=== PATIENT | male | born 1935 | race Caucasian/White ===

== ENCOUNTER 2020-05-12 21:47 | Emergency (ER) | payer MEDICARE, OTHER ==
[2020-05-12] MEDS ORDERED: ACETAMINOPHEN 325 MG TABLET PO ONE (22:27)
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
--- NOTE | 2020-05-12 23:21 | RADIOLOGY REPORT (SQ) ---
CLINICAL HISTORY: pain/ sts COMPARISON: None. TECHNIQUE: XR HAND 3 OR MORE VIEWS 05/12/2020 10:27 PM CDT FINDINGS: There is a mildly displaced fracture of the ulnar aspect of the base of the proximal second phalanx. There are multiple chronic appearing osseous bodies at the radial aspect of the second MCP joint. There is soft tissue swelling of the second digit. IMPRESSION: Base of proximal second phalanx fracture.
[2020-05-13 02:12] VITALS: BP 149/73
== END 2020-05-13 02:10 ==
LOC: ER 21:47
DX: S62.611A Displaced fracture of proximal phalanx of left index finger, initial encounter for closed fracture (principal); W51.XXXA Accidental striking against or bumped into by another person, initial encounter; Y92.099 Unspecified place in other non-institutional residence as the place of occurrence of the external cause
CPT/HCPCS: 99284; 73130; A9270

== ENCOUNTER 2020-06-11 13:15 | Emergency (ER) | payer MEDICARE, OTHER ==
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
--- NOTE | 2020-06-11 14:27 | RADIOLOGY REPORT (SQ) ---
EXAM DESCRIPTION: CT HEAD WITHOUT IMAGES COMPLETED DATE/TIME: 06/11/2020 1:11 pm REASON FOR STUDY: fall hit head COMPARISON: None. TECHNIQUE: Axial images acquired through the brain without intravenous contrast. Images reviewed wi th bone, brain and subdural windows. Additional sagittal and coronal reconstructions were generated. Images stored on PACS. All CT scanners at this facility use dose modulation, iterative reconstruction, and/or weight based d osing when appropriate to reduce radiation dose to as low as reasonably achievable (ALARA). [facility]: Dose Right [facility]: CareDose [facility]: Dose Right [facility]: Teradose 4D [facility]: Smart hiyalife RADIATION DOSE: CT Rad equipment meets quality standard of care and radiation dose reduction techniq ues were employed. CTDIvol: 53.2 mGy. DLP: 1044 mGy-cm. mGy. LIMITATIONS: None. FINDINGS: VENTRICLES: Normal size and contour. CEREBRUM: No masses. No hemorrhage. No midline shift. No evidence for acute infarction. Normal gra y-white matter differentiation. Mild patchy periventricular and deep white matter hypodense attenuat ion consistent with mild chronic small vessel ischemic change. CEREBELLUM: No masses. No hemorrhage. No alteration of density. No evidence for acute infarction. EXTRAAXIAL SPACES: No fluid collections. No masses. ORBITS AND GLOBE: No intra- or extraconal masses. Normal contour of globe without masses. CALVARIUM: No fracture. PARANASAL SINUSES: No fluid or mucosal thickening. SOFT TISSUES: No mass or hematoma. OTHER: No other significant finding. IMPRESSION: 1. No acute intracranial hemorrhage, mass, or evidence of acute territorial infarct. 2. Mild chronic small vessel ischemic change. EVIDENCE OF ACUTE STROKE: NO. COMMENT: Quality ID # 436: Final reports with documentation of one or more dose reduction techniques (e.g., Automated exposure control, adjustment of the mA and/or kV according to patient size, use of iterative reconstruction technique) TECHNICAL DOCUMENTATION: JOB ID: [id number] 2010 [employer]- All Rights Reserved Reading location - IP/workstation name: [email or web address]
--- NOTE | 2020-06-11 14:29 | RADIOLOGY REPORT (SQ) ---
EXAM DESCRIPTION: CT CERVICAL SPINE WITHOUT IMAGES COMPLETED DATE/TIME: 06/11/2020 1:11 pm REASON FOR STUDY: fall injury COMPARISON: None. TECHNIQUE: Axial images acquired through the cervical spine without intravenous contrast. Images re viewed with lung, soft tissue and bone windows. Reconstructed coronal and sagittal MPR images review ed. Images stored on PACS. All CT scanners at this facility use dose modulation, iterative reconstruction, and/or weight based d osing when appropriate to reduce radiation dose to as low as reasonably achievable (ALARA). [facility]: Dose Right [facility]: CareDose [facility]: Dose Right [facility]: Teradose 4D [facility]: Smart [employer] RADIATION DOSE: CT Rad equipment meets quality standard of care and radiation dose reduction techniq ues were employed. CTDIvol: 14.6 mGy. DLP: 328 mGy-cm. mGy. LIMITATIONS: None. FINDINGS: ALIGNMENT: Anatomic. MINERALIZATION: Normal. VERTEBRAL BODIES: No acute fracture or loss of vertebral body height. Multilevel spondylosis with sm all marginal osteophytes. No lytic or blastic bone lesions. DISCS: Degenerative disc disease with mild loss of intervertebral disc height at multiple levels. No significant spinal canal stenosis. FACETS, LATERAL MASSES, POSTERIOR ELEMENTS: No fractures. No dislocation. No acute findings. HARDWARE: None in the spine. VISUALIZED RIBS: No fractures. LUNG APICES AND SOFT TISSUES: No significant or acute findings. OTHER: No other significant finding. IMPRESSION: No acute fracture or dislocation of the cervical spine. Mild degenerative disc disease and spondylosis. TECHNICAL DOCUMENTATION: JOB ID: [id number] Quality ID # [id number]: Final reports with documentation of one or more dose reduction techniques (e.g., Au tomated exposure control, adjustment of the mA and/or kV according to patient size, use of iterative reconstruction technique) 2010 [employer]- All Rights Reserved Reading location - IP/workstation name: [email or web address]
[2020-06-11 15:58] VITALS: BP 150/83
== END 2020-06-11 16:15 | disposition home health service (06) ==
LOC: ER 13:15
DX: S00.03XA Contusion of scalp, initial encounter (principal); R51 Headache; W22.01XA Walked into wall, initial encounter; I25.10 Atherosclerotic heart disease of native coronary artery without angina pectoris
CPT/HCPCS: 70450; 72125; 99285

== ENCOUNTER 2020-09-02 11:53 | Observation (INO) | payer MEDICARE, OTHER ==
--- NOTE | 2020-09-02 12:52 | RADIOLOGY REPORT (SQ) ---
EXAM DESCRIPTION: CHEST SINGLE VIEW IMAGES COMPLETED DATE/TIME: 09/02/2020 12:40 pm REASON FOR STUDY: bed 1 short of breath COMPARISON: None. EXAM PARAMETERS: NUMBER OF VIEWS: One view. TECHNIQUE: Single frontal radiographic view of the chest acquired. RADIATION DOSE: NA LIMITATIONS: None. FINDINGS: LUNGS AND PLEURA: Hyperexpansion of the lungs. No infiltrate or effusion. No mass. MEDIASTINUM AND HILAR STRUCTURES: Hiatal hernia. HEART AND VASCULAR STRUCTURES: Heart normal in size. Normal vasculature. BONES: No acute findings. HARDWARE: Sternotomy wires. OTHER: No other significant finding. IMPRESSION: Chronic lung changes with no acute cardiopulmonary finding. Hiatal hernia. TECHNICAL DOCUMENTATION: JOB ID: [id number] 2010 [employer]- All Rights Reserved Reading location - IP/workstation name: [email or web address]
--- NOTE | 2020-09-02 13:14 | RADIOLOGY REPORT (SQ) ---
EXAM DESCRIPTION: CT HEAD WITHOUT IMAGES COMPLETED DATE/TIME: 09/02/2020 12:49 pm REASON FOR STUDY: weak COMPARISON: 06/11/2020 TECHNIQUE: Axial images acquired through the brain without intravenous contrast. Images reviewed wi th bone, brain and subdural windows. Additional sagittal and coronal reconstructions were generated. Images stored on PACS. All CT scanners at this facility use dose modulation, iterative reconstruction, and/or weight based d osing when appropriate to reduce radiation dose to as low as reasonably achievable (ALARA). [facility]: Dose Right [facility]: CareDose [facility]: Dose Right [facility]: Teradose 4D [facility]: 8th Story RADIATION DOSE: CT Rad equipment meets quality standard of care and radiation dose reduction techniq ues were employed. CTDIvol: 23.1 mGy. DLP: 476 mGy-cm.mGy. LIMITATIONS: None. FINDINGS: VENTRICLES: Prominent. CEREBRUM: No masses. No hemorrhage. No midline shift. Areas of low density in the white matter mos t likely due to chronic micro-vascular ischemic change. No evidence for acute infarction. CEREBELLUM: No masses. No hemorrhage. No alteration of density. No evidence for acute infarction. EXTRAAXIAL SPACES: Age-related involutional change. No fluid collections. No masses. ORBITS AND GLOBE: No intra- or extraconal masses. Normal contour of globe without masses. CALVARIUM: No fracture. PARANASAL SINUSES: No fluid or mucosal thickening. SOFT TISSUES: No mass or hematoma. OTHER: No other significant finding. IMPRESSION: CHRONIC CHANGES OF ATROPHY AND MICROVASCULAR ISCHEMIA. NO ACUTE PROCESS. EVIDENCE OF ACUTE STROKE: NO. TECHNICAL DOCUMENTATION: JOB ID: [id number] Quality ID # 436: Final reports with documentation of one or more dose reduction techniques (e.g., Au tomated exposure control, adjustment of the mA and/or kV according to patient size, use of iterative reconstruction technique) 2010 [employer]- All Rights Reserved Reading location - IP/workstation name: [email or web address]
[2020-09-02 13:39] LABS: ABSOLUTE BASOPHILS # (AUTO) 0.1 10^3/uL (0.0-0.2); ABSOLUTE EOSINOPHILS # (AUTO) 1.2 10^3/uL (0.0-0.6); ABSOLUTE LYMPHOCYTES (AUTO) 0.8 10^3/uL (0.5-4.7); ABSOLUTE MONOCYTES (AUTO) 0.6 10^3/uL (0.1-1.4); ABSOLUTE NEUT (AUTO) 6.4 10^3/uL (1.7-8.2); EOSINOPHILS % (AUTO) 13.6 % (0-6); LYMPHOCYTES % (AUTO) 8.9 % (13-45); MEAN CORPUSCULAR HEMOGLOBIN 21.2 pg (27.0-33.4); MEAN CORPUSCULAR VOLUME 68 fl (80-97); MONOCYTES % (AUTO) 6.4 % (3-13); PLATELET COUNT 388 10^3/uL (150-450); RED BLOOD COUNT 3.08 10^6/uL (4.35-5.55); RED CELL DISTRIBUTION WIDTH 17.3 % (11.5-14.0); SEGMENTED NEUTROPHILS % (AUTO) 70.1 % (42-78); TOTAL CELLS COUNTED % (AUTO) 100 %; WHITE BLOOD COUNT 9.2 10^3/uL (4.0-10.5)
[2020-09-02 13:40] LABS: HEMOGLOBIN 6.5 g/dL (13.5-17.0)
[2020-09-02 13:59] LABS: ALBUMIN 3.5 g/dL (3.5-5.0); ALKALINE PHOSPHATASE 69 U/L (38-126); ANION GAP 6 (5-19); ASPARTATE AMINO TRANSFERASE 18 U/L (17-59); BILIRUBIN,TOTAL 0.2 mg/dL (0.2-1.3); BLOOD UREA NITROGEN 22 mg/dL (7-20); CALCIUM 8.7 mg/dL (8.4-10.2); CARBON DIOXIDE 27 mmol/L (22-30); CHLORIDE 106 mmol/L (98-107); CREATINE KINASE 43 U/L (55-170); GLUCOSE 97 mg/dL (75-110); POTASSIUM 4.4 mmol/L (3.6-5.0); TOTAL PROTEIN 6.2 g/dL (6.3-8.2)
[2020-09-02 14:10] LABS: CREATINE KINASE MB 3.35 ng/mL (<4.55); NT PRO BNP 1140 pg/mL (<450)
[2020-09-02 14:11] LABS: TROPONIN I < 0.012 ng/mL
[2020-09-02] MEDS ORDERED: NORMAL SALINE 250 ML IV PRN ×2 (14:43)
[2020-09-02 15:28] LABS: ABSOLUTE RETICS # 0.034 10^6/uL (0.028-0.122); RETICULOCYTE COUNT (AUTO) 1.12 % (0.66-2.85)
[2020-09-02 15:32] LABS: APPEARANCE,URINE CLEAR; BILIRUBIN,URINE NEGATIVE (NEGATIVE); COLOR,URINE YELLOW; GLUCOSE, URINE NEGATIVE (NEGATIVE); KETONES,URINE NEGATIVE (NEGATIVE); PROTEIN,URINE NEGATIVE (NEGATIVE); URINE SPECIFIC GRAVITY 1.015; UROBILINOGEN,URINE NEGATIVE mg/dL (<2.0)
--- NOTE | 2020-09-02 15:32 | ER Document Report ---
ED Dizziness/Weakness - General Chief Complaint: Weakness Stated Complaint: WEAKNESS Time Seen by Provider: 09/02/20 12:21 Mode of Arrival: Medic Information source: Patient, Relative, Emergency Med Personnel, Outside Facility Records - HPI Notes: Patient was sent by an extended care facility to the emergency department secondary to weakness. They felt that he was more weak than normal. Son accompanies the patient in the room. Son states that he has noticed over the last several days that his father is a weaker and that his voice is quieter and that his speech is more unclear. No known recent fever sweats chills. No falls or trauma known. Patient has not had no vomiting or diarrhea. - Related Data Allergies/Adverse Reactions: No Known Allergies Allergy (Verified 09/02/20 12:05) Home Medications: List from transferring facility in paper chart. Past Medical History - General Information source: Patient, Relative, Outside Facility Records - Social History Smoking Status: Former Smoker Chew tobacco use (# tins/day): No Frequency of alcohol use: None Drug Abuse: None Family History: Reviewed & Not Pertinent - Past Medical History Cardiac Medical History: Reports: Hx Coronary Artery Disease Malignancy Medical History: Reports Hx Prostate Cancer Psychiatric Medical History: Reports: Hx Dementia Review of Systems - Review of Systems Constitutional: denies: Chills, Fever Cardiovascular: denies: Chest pain, Palpitations Respiratory: denies: Cough, Short of breath -: Yes All other systems reviewed and negative Physical Exam - Vital signs Vitals: Temp Resp BP Pulse Ox 98.0 F 10 L 124/58 L 95 09/02/20 11:59 09/02/20 11:59 09/02/20 11:59 09/02/20 11:59 Interpretation: Normal - General General appearance: Appears well, Alert - HEENT Head: Normocephalic, Atraumatic Eyes: Normal Pupils: PERRL - Respiratory Respiratory status: No respiratory distress Chest status: Nontender Breath sounds: Normal Chest palpation: Normal - Cardiovascular Rhythm: Regular Heart sounds: Normal auscultation Murmur: No - Abdominal Inspection: Normal Distension: No distension Bowel sounds: Normal Tenderness: Nontender Organomegaly: No organomegaly - Rectal Tenderness: No Stool: Heme negative Hemorrhoids: None - Back Back: Normal, Nontender - Extremities General upper extremity: Normal inspection, Nontender, Normal temperature General lower extremity: Normal inspection, Nontender, Normal temperature. No: Adamaris's sign - Neurological Cognition: Confused Orientation: Disoriented to place, Disoriented to time [place] Coma Scale Eye Opening: Spontaneous [place] Coma Scale Verbal: Confused [place] Coma Scale Motor: Obeys Commands Shirin Coma Scale Total: 14 Speech: Normal Motor strength normal: LUE, RUE, LLE, RLE Sensory: Normal - Psychological Associated symptoms: Normal affect, Normal mood - Skin Skin Temperature: Warm Skin Moisture: Dry Skin Color: Pale Course - Re-evaluation Re-evalutation: 09/02/20 15:30 Patient presents with weakness and some unclear speech per son. This been going on for several days. Patient shows no other focal deficits. Patient is significantly anemic however. He is also pale he is heme-negative rectally. Patient has no obvious sites of bleeding. Patient, per son, has never had bleeding before or required a transfusion. - Vital Signs Vital signs: Temp Pulse Resp BP Pulse Ox 98.0 F 10 L 124/58 L 95 09/02/20 12:05 09/02/20 11:59 09/02/20 11:59 09/02/20 12:04 - Laboratory Result Diagrams: 09/02/20 13:18 09/02/20 13:18 Laboratory results interpreted by me: 09/02/20 09/02/20 09/02/20 13:18 13:18 13:18 RBC 3.08 L Hgb 6.5 L Hct 21.0 L MCV 68 L MCH 21.2 L MCHC 31.0 L RDW 17.3 H Lymph % (Auto) 8.9 L Eos % (Auto) 13.6 H Absolute Eos (auto) 1.2 H BUN 22 H Creatine Kinase 43 L NT-Pro-B Natriuret Pep 1140 H Total Protein 6.2 L Crossmatch 09/02/20 14:59 RBC Hgb Hct MCV MCH MCHC RDW Lymph % (Auto) Eos % (Auto) Absolute Eos (auto) BUN Creatine Kinase NT-Pro-B Natriuret Pep Total Protein Crossmatch See Detail - Diagnostic Test Radiology reviewed: Image reviewed, Reports reviewed - EKG Interpretation by Me EKG shows normal: Sinus rhythm Rate: Normal - 78 Rhythm: NSR Murdock/QRS: IVCD Discharge - Discharge Clinical Impression: Weakness Anemia Qualifiers: Anemia type: iron deficiency Iron deficiency anemia type: chronic blood loss Qualified Code(s): 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
[2020-09-02 16:19] LABS: FERRITIN 6.54 ng/mL (17.9-464.0)
[2020-09-02 16:55] LABS: IRON(TIBC) < 10.1 ug/dL (49-181)
--- NOTE | 2020-09-02 17:28 | PDOC H&P ---
History of Present Illness Admission Date/PCP: 09/02/20 15:52 History of Present Illness: IRENA WEAVER is a 85 year old male Past medical history of dementia, CAD, prostate cancer, who is a [facility], brought to ED by family because patient was noted to be weaker than his normal self. Unfortunately patient has profound dementia does not provide much history, source of history is my conversation with ED physician and chart reviewed, no family present at the patient from the time of my encounter. As per family patient has not had any fever, chills, trauma, diarrhea, vomiting, or any apparent source of bleeding. In ED patient was noted to be severely anemic, stool guaiac was negative and hospitalist consulted for admission. On my encounter patient is comfortably stable, pleasantly confused, alert and oriented to self, knows he is in the hospital but will be sent that he is in the hospital is that he has lost his identity, patient denies any fever, chills, [place] sea, vomiting, diarrhea, constipation or any urinary symptoms. Denies any nosebleeds, hematemesis, hemoptysis, melena or hematuria. Past Medical History Cardiac Medical History: Reports: Coronary Artery Disease Psychiatric Medical History: Reports: Dementia Social History Smoking Status: Former Smoker Electronic Cigarette use?: No Family History Family History: Reviewed & Not Pertinent Parental Family History Reviewed: Yes Children Family History Reviewed: Yes Sibling(s) Family History Reviewed.: Yes Medication/Allergy Home Medications: Aspirin [Ecotrin 81 mg EC Tablet] 81 mg PO DAILY 09/02/20 Docusate Sodium [Colace 100 mg Capsule] 100 mg PO Q12 09/02/20 Memantine HCl [Namenda 10 mg Tablet] 10 mg PO Q12 09/02/20 Cholecalciferol (Vitamin D3) [Vitamin D3] 5,000 unit PO DAILY 56 Days #56 tab.rapdis 09/03/20 Cyanocobalamin (Vitamin B-12) [Vitamin B-12 Inj 1000 Mcg/1 ml Vial] 1,000 mcg IM .WEEKLY #8 vial 09/03/20 Cyanocobalamin (Vitamin B-12) [Vitamin B-12 Inj 1000 Mcg/1 ml Vial] 1,000 mcg IM DAILY 7 Days #7 vial 09/03/20 Ferrous Sulfate 325 mg PO DAILY 30 Days #30 tablet. 09/03/20 Multivit-Min/FA/Lycopen/Lutein [Adults 50 Plus Multivitamin] 1 each PO DAILY 30 Days #30 tablet 09/03/20 Allergies/Adverse Reactions: No Known Allergies Allergy (Verified 09/02/20 12:05) Review of Systems Review of Systems: as per hpi not very reliable as patient has profound dementia. Physical Exam Vital Signs: Temp Pulse Resp BP Pulse Ox 97.9 F 20 155/78 H 96 09/02/20 16:00 09/02/20 16:00 09/02/20 16:00 09/02/20 16:00 Intake & Output 09/01/20 09/02/20 09/03/20 06:59 06:59 06:59 Weight 73 kg General appearance: PRESENT: no acute distress, well-developed, well-nourished Head exam: PRESENT: atraumatic, normocephalic Neck exam: ABSENT: carotid bruit, JVD, lymphadenopathy, thyromegaly Respiratory exam: PRESENT: clear to auscultation denae. ABSENT: rales, rhonchi, wheezes GI/Abdominal exam: PRESENT: normal bowel sounds, soft. ABSENT: distended, guarding, mass, organolmegaly, rebound, tenderness Neurological exam: PRESENT: alert, awake, oriented to person, oriented to place, CN II-XII grossly intact. ABSENT: motor sensory deficit Skin exam: PRESENT: dry, intact, warm. ABSENT: cyanosis, rash Results Laboratory Results: 09/02/20 13:18 09/02/20 13:18 09/02/20 09/02/20 09/02/20 13:18 13:18 13:18 WBC 9.2 RBC 3.08 L Hgb 6.5 L Hct 21.0 L MCV 68 L MCH 21.2 L MCHC 31.0 L RDW 17.3 H Plt Count 388 Seg Neutrophils % 70.1 Retic Count (auto) 1.12 Sodium 139.0 Potassium 4.4 Chloride 106 Carbon Dioxide 27 Anion Gap 6 BUN 22 H Creatinine 0.93 Est GFR ( Amer) > 60 Glucose 97 Lactic Acid Calcium 8.7 Iron TIBC Ferritin Total Bilirubin 0.2 AST 18 Alkaline Phosphatase 69 Total Protein 6.2 L Albumin 3.5 Vitamin B12 Folate Urine Color Urine Appearance Urine pH Ur Specific [place] Urine Protein Urine Glucose (UA) Urine Ketones Urine Blood Urine RBC (Auto) Blood Type Antibody Screen 09/02/20 09/02/20 09/02/20 13:18 13:18 13:25 WBC RBC Hgb Hct MCV MCH MCHC RDW Plt Count Seg Neutrophils % Retic Count (auto) Sodium Potassium Chloride Carbon Dioxide Anion Gap BUN Creatinine Est GFR ( Amer) Glucose Lactic Acid 0.8 Calcium Iron < 10.1 L TIBC 411 Ferritin 6.54 L Total Bilirubin AST Alkaline Phosphatase Total Protein Albumin Vitamin B12 224.0 L Folate 7.40 Urine Color YELLOW Urine Appearance CLEAR Urine pH 6.0 Ur Specific [place] 1.015 Urine Protein NEGATIVE Urine Glucose (UA) NEGATIVE Urine Ketones NEGATIVE Urine Blood NEGATIVE Urine RBC (Auto) 0 Blood Type Antibody Screen 09/02/20 14:59 WBC RBC Hgb Hct MCV MCH MCHC RDW Plt Count Seg Neutrophils % Retic Count (auto) Sodium Potassium Chloride Carbon Dioxide Anion Gap BUN Creatinine Est GFR ( Amer) Glucose Lactic Acid Calcium Iron TIBC Ferritin Total Bilirubin AST Alkaline Phosphatase Total Protein Albumin Vitamin B12 Folate Urine Color Urine Appearance Urine pH Ur Specific [place] Urine Protein Urine Glucose (UA) Urine Ketones Urine Blood Urine RBC (Auto) Blood Type O POSITIVE Antibody Screen NEGATIVE 09/02/20 09/02/20 13:18 13:18 Creatine Kinase 43 L CK-MB (CK-2) 3.35 Troponin I < 0.012 NT-Pro-B Natriuret Pep 1140 H Impressions: Chest X-Ray 09/02/20 12:10 IMPRESSION: Chronic lung changes with no acute cardiopulmonary finding. Hiatal hernia. Head CT 09/02/20 12:30 IMPRESSION: CHRONIC CHANGES OF ATROPHY AND MICROVASCULAR ISCHEMIA. NO ACUTE PROCESS. EVIDENCE OF ACUTE STROKE: NO. Assessment and Plan - Diagnosis (1) Iron deficiency anemia Qualifiers: Iron deficiency anemia type: inadequate dietary iron intake Qualified Code(s): D50.8 - Other iron deficiency anemias Is this a current diagnosis for this admission?: Yes Plan: Severe iron and B12 deficiency. Stool guaiac negative. Most likely due to low p.o. intake. We will start on iron transfusion, IM vitamin B12 and p.o. folic acid. Scheduled to receive 2 PRBC. Monitor H&H, supportive transfusions. (2) Dementia Is this a current diagnosis for this admission?: Yes Plan: History of dementia. [facility]. Not sure if B12 deficiency has contributed to his dementia. We will replace B12. We will also check for TSH and T4. Resume home meds. Continue supportive measures. (3) Vitamin B12 deficiency Is this a current diagnosis for this admission?: Yes Plan: As per problem #1. (4) Vitamin D deficiency Is this a current diagnosis for this admission?: Yes - Time Time Spent with patient: 25-34 minutes Medications reviewed and adjusted accordingly: Yes Anticipated Discharge Disposition: [facility] Anticipated Discharge Timeframe: within 72 hours
[2020-09-02] MEDS ORDERED: FERRIC CARBOXYMALTOSE INJ 750 MG/15 ML VIAL IV ONE (17:29)
[2020-09-02] MEDS ORDERED: FOLIC ACID INJ 5 MG/1 ML 10 ML VIAL IV SCH (17:30)
[2020-09-02] MEDS ORDERED: ONDANSETRON HCL INJ/PF 4 MG/2 ML SDV IV PRN (17:31)
[2020-09-02] MEDS ORDERED: ACETAMINOPHEN 325 MG TABLET PO PRN (17:31)
[2020-09-02] MEDS ORDERED: NORMAL SALINE 1000 ML 1,000 ML IV PRN (17:31)
[2020-09-02] MEDS ORDERED: TEMAZEPAM 7.5 MG CAPSULE PO PRN (17:31)
[2020-09-02] MEDS ORDERED: PROMETHAZINE HCL INJ 25 MG/1 ML VIAL IV PRN (17:31)
[2020-09-02] MEDS ORDERED: IPRATROPIUM/ALBUTEROL 0.5-2.5 MG/3 ML AMPUL NEB PRN (17:31)
[2020-09-02] MEDS ORDERED: MAG HYDROX/AL HYDROX/SIMETH SUSP 30 ML UDCUP PO PRN (17:31)
--- NOTE | 2020-09-02 17:51 | EKG REPORT ---
SEVERITY:- ABNORMAL ECG - SINUS RHYTHM : Confirmed by: Jose Riggins 02-Sep-2020 17:50:12
[2020-09-02] MEDS ORDERED: FOLIC ACID 1 MG in NORMAL SALINE 250 ML IV ONE (19:30)
[2020-09-02 19:42] LABS: FREE T4 (FREE THYROXINE) 0.84 ng/dL (0.78-2.19)
[2020-09-02 19:56] LABS: THYROID STIMULATING HORMONE 3.67 uIU/mL (0.47-4.68)
[2020-09-02] MEDS ORDERED: FERRIC CARBOXYMALTOSE 750 MG in NORMAL SALINE 250 ML IV ONE (20:00)
[2020-09-02] MEDS ORDERED: CYANOCOBALAMIN (VITAMIN B-12) INJ 1000 MCG/1 ML VIAL IM SCH (22:00)
[2020-09-03] MEDS: HEPARIN SOD (PORCINE) 5,000 UNIT/ML 1 ML VIAL SUBCUT SCH ×3 (01:58→13:41)
[2020-09-03] MEDS: FAMOTIDINE 20 MG TABLET PO SCH ×2 (01:59→09:28)
[2020-09-03] MEDS ORDERED: FERRIC CARBOXYMALTOSE 750 MG in NORMAL SALINE 250 ML IV ONE (03:00)
[2020-09-03] MEDS ORDERED: FOLIC ACID 1 MG in NORMAL SALINE 250 ML IV ONE (03:00)
[2020-09-03 07:37] LABS: ABSOLUTE BASOPHILS # (AUTO) 0.1 10^3/uL (0.0-0.2); ABSOLUTE EOSINOPHILS # (AUTO) 1.4 10^3/uL (0.0-0.6); ABSOLUTE LYMPHOCYTES (AUTO) 0.9 10^3/uL (0.5-4.7); ABSOLUTE MONOCYTES (AUTO) 0.6 10^3/uL (0.1-1.4); ABSOLUTE NEUT (AUTO) 5.8 10^3/uL (1.7-8.2); BASOPHILS % (AUTO) 0.9 % (0-2); EOSINOPHILS % (AUTO) 16.2 % (0-6); HEMATOCRIT 25.3 % (37.9-51.0); HEMOGLOBIN 8.1 g/dL (13.5-17.0); LYMPHOCYTES % (AUTO) 10.3 % (13-45); MEAN CORPUSCULAR HEMOGLOBIN 23.3 pg (27.0-33.4); MEAN CORPUSCULAR HGB CONC 32.1 g/dL (32.0-36.0); MONOCYTES % (AUTO) 6.6 % (3-13); PLATELET COUNT 328 10^3/uL (150-450); RED BLOOD COUNT 3.48 10^6/uL (4.35-5.55); RED CELL DISTRIBUTION WIDTH 20.8 % (11.5-14.0); TOTAL CELLS COUNTED % (AUTO) 100 %; WHITE BLOOD COUNT 8.7 10^3/uL (4.0-10.5)
[2020-09-03 08:00] LABS: ALBUMIN 3.2 g/dL (3.5-5.0); ALKALINE PHOSPHATASE 55 U/L (38-126); ANION GAP 7 (5-19); ASPARTATE AMINO TRANSFERASE 19 U/L (17-59); BILIRUBIN,TOTAL 0.8 mg/dL (0.2-1.3); BLOOD UREA NITROGEN 18 mg/dL (7-20); CALCIUM 8.7 mg/dL (8.4-10.2); CARBON DIOXIDE 27 mmol/L (22-30); CHLORIDE 107 mmol/L (98-107); GLUCOSE 75 mg/dL (75-110); POTASSIUM 4.3 mmol/L (3.6-5.0); TOTAL PROTEIN 5.9 g/dL (6.3-8.2)
[2020-09-03] MEDS ORDERED: INFLUENZA QUAD (6MOS+) 2020-21 VAC 0.5 ML SYR IM ONE (08:00)
[2020-09-03 08:08] LABS: MEAN CORPUSCULAR VOLUME 73 fl (80-97)
[2020-09-03] MEDS ORDERED: DOCUSATE SODIUM 100 MG CAPSULE PO SCH (10:00)
[2020-09-03] MEDS ORDERED: FOLIC ACID 1 MG TABLET PO SCH (10:00)
[2020-09-03] MEDS ORDERED: PROMETHAZINE HCL INJ 25 MG/1 ML VIAL IV PRN (15:00)
[2020-09-03] MEDS ORDERED: ONDANSETRON HCL INJ/PF 4 MG/2 ML SDV IV PRN (15:00)
[2020-09-03 15:54] VITALS: BP 159/51
--- NOTE | 2020-09-03 16:25 | PDOC DISCHARGE SUMMARY ---
Impression - Admit/DC Date/PCP Admission Date/Primary Care Provider: 09/02/20 15:52 Discharge Date: 09/03/20 - Discharge Diagnosis (1) Iron deficiency anemia Is this a current diagnosis for this admission?: Yes (2) Dementia Is this a current diagnosis for this admission?: Yes (3) Vitamin B12 deficiency Is this a current diagnosis for this admission?: Yes (4) Vitamin D deficiency Is this a current diagnosis for this admission?: Yes - Additional Information Resuscitation Status: Full Code Prescriptions: Multivit-Min/FA/Lycopen/Lutein [Adults 50 Plus Multivitamin] 1 each PO DAILY 30 Days #30 tablet Cyanocobalamin (Vitamin B-12) [B-12] 3,000 mcg SL DAILY 30 Days #30 tab.subl Ferrous Sulfate 325 mg PO DAILY 30 Days #30 tablet. Cholecalciferol (Vitamin D3) [Vitamin D3] 5,000 unit PO DAILY 56 Days #56 tab.rapdis Home Medications: Aspirin [Ecotrin 81 mg EC Tablet] 81 mg PO DAILY 09/02/20 Docusate Sodium [Colace 100 mg Capsule] 100 mg PO Q12 09/02/20 Memantine HCl [Namenda 10 mg Tablet] 10 mg PO Q12 09/02/20 Cholecalciferol (Vitamin D3) [Vitamin D3] 5,000 unit PO DAILY 56 Days #56 tab.rapdis 09/03/20 Cyanocobalamin (Vitamin B-12) [B-12] 3,000 mcg SL DAILY 30 Days #30 tab.subl 09/03/20 Ferrous Sulfate 325 mg PO DAILY 30 Days #30 tablet. 09/03/20 Multivit-Min/FA/Lycopen/Lutein [Adults 50 Plus Multivitamin] 1 each PO DAILY 30 Days #30 tablet 09/03/20 History of Present Illiness History of Present Illness: IRENA WEAVER is a 85 year old male Past medical history of dementia, CAD, prostate cancer, who is a resident of group home, brought to ED by family because patient was noted to be weaker than his normal self. Unfortunately patient has profound dementia does not provide much history, source of history is my conversation with ED physician and chart reviewed, no family present at the patient from the time of my encounter. As per family patient has not had any fever, chills, trauma, diarrhea, vomiting, or any apparent source of bleeding. In ED patient was noted to be severely anemic, stool guaiac was negative and hospitalist consulted for admission. On my encounter patient is comfortably stable, pleasantly confused, alert and oriented to self, knows he is in the hospital but will be sent that he is in the hospital is that he has lost his identity, patient denies any fever, chills, nausea, vomiting, diarrhea, constipation or any urinary symptoms. Denies any nosebleeds, hematemesis, hemoptysis, melena or hematuria. Hospital Course Hospital Course: (1) Iron deficiency anemia Severe iron and B12 deficiency. Stool guaiac negative as per ED physician's note. Most likely due to low p.o. intake. As per my conversation with patient's son and himself he has a healthy appetite and he is fed properly at the assisted living that he is living. Patient received 2 days of IM B12. Dose of IV folic acid. 1 dose of IV Injectafer. Status post 2 PRBC transfusion. H&H is stable. Patient and son reports significant improvement of his symptoms. As per son patient is back at his baseline. It is highly recommended that patient continue with his supplemental ferrous sulfate, folic acid and sublingual B12. Patient will highly benefit from SC/IM B12 injection but unfortunately I was informed that the assisted living that he is staying we will not be able to give any IM/SC medications. Patient needs to follow-up with his PCP for reevaluation of his iron deficiency, B12 and Vitamin D levesl if levels are still low patient needs to be worked up for underlying malabsorptive abnormalities. Patient and family intervention proper nutrition. (2) Dementia History of dementia. Resident of group home. Not sure if B12 deficiency has contributed to his dementia. TSH, T4 WNL. (3) Vitamin B12 deficiency As per problem #1. (4) Vitamin D deficiency Severe vitamin D deficiency. Likely due to low p.o. intake. Received 50,000 units x 1 in the hospital. Patient is to continue vitamin B12 5000 unit for another 8 weeks and be reevaluated by PCP. Physical Exam Vital Signs: Temp Pulse Resp BP Pulse Ox 98.2 F 61 19 159/51 H 95 09/03/20 15:25 09/03/20 15:25 09/03/20 15:25 09/03/20 15:25 11/11/20 15:25 Intake & Output 09/02/20 09/03/20 09/04/20 06:59 06:59 06:59 Intake Total 1115.2 Balance 1115.2 Weight 67.3 kg 67.3 kg General appearance: PRESENT: no acute distress, well-developed, well-nourished Head exam: PRESENT: atraumatic, normocephalic Respiratory exam: PRESENT: clear to auscultation denae. ABSENT: rales, rhonchi, wheezes Pulses: PRESENT: normal dorsalis pedis pul GI/Abdominal exam: PRESENT: normal bowel sounds, soft. ABSENT: distended, guarding, mass, organolmegaly, rebound, tenderness Extremities exam: PRESENT: full ROM. ABSENT: calf tenderness, clubbing, pedal edema Neurological exam: PRESENT: alert, awake, oriented to person, oriented to place, oriented to time, oriented to situation, CN II-XII grossly intact. ABSENT: motor sensory deficit Results Laboratory Results: WBC 8.7 10^3/uL (4.0-10.5) 09/03/20 06:38 RBC 3.48 10^6/uL (4.35-5.55) L 09/03/20 06:38 Hgb 8.1 g/dL (13.5-17.0) L 09/03/20 06:38 Hct 25.3 % (37.9-51.0) L 09/03/20 06:38 MCV 73 fl (80-97) L D 09/03/20 06:38 MCH 23.3 pg (27.0-33.4) L 09/03/20 06:38 MCHC 32.1 g/dL (32.0-36.0) 09/03/20 06:38 RDW 20.8 % (11.5-14.0) H 09/03/20 06:38 Plt Count 328 10^3/uL (150-450) 09/03/20 06:38 Lymph % (Auto) 10.3 % (13-45) L 09/03/20 06:38 [place] % (Auto) 6.6 % (3-13) 09/03/20 06:38 Eos % (Auto) 16.2 % (0-6) H 09/03/20 06:38 Baso % (Auto) 0.9 % (0-2) 09/03/20 06:38 Reticulocyte # 0.034 10^6/uL (0.028-0.122) 09/02/20 13:18 Absolute Neuts (auto) 5.8 10^3/uL (1.7-8.2) 09/03/20 06:38 Absolute Lymphs (auto) 0.9 10^3/uL (0.5-4.7) 09/03/20 06:38 Absolute Monos (auto) 0.6 10^3/uL (0.1-1.4) 09/03/20 06:38 Absolute Eos (auto) 1.4 10^3/uL (0.0-0.6) H 09/03/20 06:38 Absolute Basos (auto) 0.1 10^3/uL (0.0-0.2) 09/03/20 06:38 Seg Neutrophils % 66.0 % (42-78) 09/03/20 06:38 Retic Count (auto) 1.12 % (0.66-2.85) 09/02/20 13:18 Sodium 141.4 mmol/L (137-145) 09/03/20 06:38 Potassium 4.3 mmol/L (3.6-5.0) 09/03/20 06:38 Chloride 107 mmol/L (98-107) 09/03/20 06:38 Carbon Dioxide 27 mmol/L (22-30) 09/03/20 06:38 Anion Gap 7 (5-19) 09/03/20 06:38 BUN 18 mg/dL (7-20) 09/03/20 06:38 Creatinine 0.91 mg/dL (0.52-1.25) 09/03/20 06:38 Est GFR ( Amer) > 60 (>60) 09/03/20 06:38 Est GFR (MDRD) Non-Af > 60 (>60) 09/03/20 06:38 Glucose 75 mg/dL (75-110) 09/03/20 06:38 Lactic Acid 0.8 mmol/L (0.7-2.1) 09/02/20 13:25 Calcium 8.7 mg/dL (8.4-10.2) 09/03/20 06:38 Iron < 10.1 ug/dL (49-181) L 09/02/20 13:18 TIBC 411 ug/dL (250-450) 09/02/20 13:18 Iron Saturation UNABLE TO CALCULATE % (20% - 50%) 09/02/20 13:18 Ferritin 6.54 ng/mL (17.9-464.0) L 09/02/20 13:18 Total Bilirubin 0.8 mg/dL (0.2-1.3) 09/03/20 06:38 Direct Bilirubin 0.0 mg/dL (0.0-0.4) 09/03/20 06:38 Neonat Total Bilirubin Not Reportable 09/03/20 06:38 Neonat Direct Bilirubin Not Reportable 09/03/20 06:38 Neonat Indirect Bili Not Reportable 09/03/20 06:38 AST 19 U/L (17-59) 09/03/20 06:38 ALT 11 U/L (<50) 09/03/20 06:38 Alkaline Phosphatase 55 U/L (38-126) 09/03/20 06:38 Creatine Kinase 43 U/L (55-170) L 09/02/20 13:18 CK-MB (CK-2) 3.35 ng/mL (<4.55) 09/02/20 13:18 Troponin I < 0.012 ng/mL 09/02/20 13:18 NT-Pro-B Natriuret Pep 1140 pg/mL (<450) H 09/02/20 13:18 Total Protein 5.9 g/dL (6.3-8.2) L 09/03/20 06:38 Albumin 3.2 g/dL (3.5-5.0) L 09/03/20 06:38 Prealbumin 18.6 mg/dL (17.6-36.0) 09/02/20 13:18 Vitamin B12 224.0 pg/mL (239-931) L 09/02/20 13:18 Vitamin D 25-Hydroxy < 12.8 ng/mL (14.7-68.3) L 09/03/20 06:38 Folate 7.40 ng/mL (>2.76) 09/02/20 13:18 TSH 3.67 uIU/mL (0.47-4.68) 09/02/20 13:18 Free T4 0.84 ng/dL (0.78-2.19) 09/02/20 13:18 Urine Color YELLOW 09/02/20 13:18 Urine Appearance CLEAR 09/02/20 13:18 Urine pH 6.0 (5.0-9.0) 09/02/20 13:18 Ur Specific [place] 1.015 09/02/20 13:18 Urine Protein NEGATIVE mg/dL (NEGATIVE) 09/02/20 13:18 Urine Glucose (UA) NEGATIVE mg/dL (NEGATIVE) 09/02/20 13:18 Urine Ketones NEGATIVE mg/dL (NEGATIVE) 09/02/20 13:18 Urine Blood NEGATIVE (NEGATIVE) 09/02/20 13:18 Urine Nitrite (Reflex) NEGATIVE (NEGATIVE) 09/02/20 13:18 Urine Bilirubin NEGATIVE (NEGATIVE) 09/02/20 13:18 Urine Urobilinogen NEGATIVE mg/dL (<2.0) 09/02/20 13:18 Leukocyte Esterase Rfl NEGATIVE (NEGATIVE) 09/02/20 13:18 Urine RBC (Auto) 0 /HPF 09/02/20 13:18 U Hyaline Cast (Auto) 1 /LPF 09/02/20 13:18 Urine WBC (Reflex) < 1 /HPF 09/02/20 13:18 Urine Mucus (Auto) RARE /LPF 09/02/20 13:18 Urine Ascorbic Acid NEGATIVE (NEGATIVE) 09/02/20 13:18 Blood Type O POSITIVE 09/02/20 14:59 Blood Type Confirm O POSITIVE 09/02/20 15:03 Antibody Screen NEGATIVE 09/02/20 14:59 Crossmatch See Detail 09/02/20 14:59 09/02/20 13:18 CK-MB (CK-2) 3.35 Troponin I < 0.012 NT-Pro-B Natriuret Pep 1140 H Impressions: Chest X-Ray 09/02/20 12:10 IMPRESSION: Chronic lung changes with no acute cardiopulmonary finding. Hiatal hernia. Head CT 09/02/20 12:30 IMPRESSION: CHRONIC CHANGES OF ATROPHY AND MICROVASCULAR ISCHEMIA. NO ACUTE PROCESS. EVIDENCE OF ACUTE STROKE: NO. Stroke Is this a Stroke Patient?: No Acute Heart Failure Is this a Heart Failure Patient?: No
[2020-09-03] MEDS ORDERED: ERGOCALCIFEROL (VITAMIN D2) 50000 UNIT (1.25 MG) CAPSULE PO ONE (17:00)
[2020-09-03] MEDS ORDERED: MEMANTINE HCL 10 MG TABLET PO SCH (22:00)
[2020-09-04] MEDS ORDERED: ASPIRIN 81 MG TABLET, ENT COATED PO SCH (10:00)
[2020-09-04] MEDS ORDERED: CHOLECALCIFEROL (D3) 1,000 UNIT (25 MCG) TABLET PO ONE (16:05)
== END 2020-09-03 20:42 ==
LOC: ER 11:53 → EH 15:52 → INTOOBSV 15:52 → 5 17:13
PROVIDERS: ADMIT Internal Medicine; ATTEND Internal Medicine
DX: D50.8 Other iron deficiency anemias (principal); D51.9 Vitamin B12 deficiency anemia, unspecified; E55.9 Vitamin D deficiency, unspecified; F03.90 Unspecified dementia, unspecified severity, without behavioral disturbance, psychotic disturbance, mood disturbance, and anxiety; R40.2362 Coma scale, best motor response, obeys commands, at arrival to emergency department; R40.2142 Coma scale, eyes open, spontaneous, at arrival to emergency department; R40.2242 Coma scale, best verbal response, confused conversation, at arrival to emergency department; I25.10 Atherosclerotic heart disease of native coronary artery without angina pectoris; R47.9 Unspecified speech disturbances; Z85.46 Personal history of malignant neoplasm of prostate; Z87.891 Personal history of nicotine dependence; Z79.899 Other long term (current) drug therapy; Z79.82 Long term (current) use of aspirin; Z20.828 Contact with and (suspected) exposure to other viral communicable diseases
CPT/HCPCS: 93005; 99285; 86900; 86901; 36415 ×2; 87040; 84439; 82553; 36430; 86850; 82607; 82550; 82728; 82746; 83540; 83550; 83605; 84443; 85025 ×2; 85045; 80053 ×2; 81001; 84484; 86920; 84134; 82306; 83880; 71045; 70450; 93010; G0378; P9016; U0003; J1644; A9270 ×4; J3420; J3490 ×2; J7050 ×2; J1439; C9803; 87635

== ENCOUNTER 2020-11-11 18:18 | Emergency (ER) | payer MEDICARE, OTHER ==
[2020-11-11 18:57] LABS: HEMATOCRIT 40.3 % (37.9-51.0); HEMOGLOBIN 13.2 g/dL (13.5-17.0); MEAN CORPUSCULAR HGB CONC 32.7 g/dL (32.0-36.0); MEAN CORPUSCULAR VOLUME 80 fl (80-97); RED BLOOD COUNT 5.07 10^6/uL (4.35-5.55); WHITE BLOOD COUNT 8.4 10^3/uL (4.0-10.5)
[2020-11-11 19:16] LABS: ALBUMIN 3.5 g/dL (3.5-5.0); ALKALINE PHOSPHATASE 106 U/L (38-126); ANION GAP 6 (5-19); ASPARTATE AMINO TRANSFERASE 22 U/L (17-59); BILIRUBIN,DIRECT 0.2 mg/dL (0.0-0.4); BILIRUBIN,TOTAL 0.4 mg/dL (0.2-1.3); BLOOD UREA NITROGEN 33 mg/dL (7-20); CALCIUM 9.1 mg/dL (8.4-10.2); CARBON DIOXIDE 31 mmol/L (22-30); CHLORIDE 106 mmol/L (98-107); GLUCOSE 108 mg/dL (75-110); POTASSIUM 3.7 mmol/L (3.6-5.0); TOTAL PROTEIN 6.9 g/dL (6.3-8.2)
[2020-11-11 19:18] LABS: ALCOHOL < 10 mg/dL (NONE DETECTED)
[2020-11-11 19:28] LABS: ABSOLUTE LYMPHOCYTES# (MANUAL) 1.3 10^3/uL (0.5-4.7); ABSOLUTE MONOCYTES # (MANUAL) 0.3 10^3/uL (0.1-1.4); BASOPHILS % (MANUAL) 0 % (0-2); EOSINOPHILS % (MANUAL) 4 % (0-6); LYMPHOCYTES % (MANUAL) 16 % (13-45); MONOCYTES % (MANUAL) 4 % (3-13); SEGMENTED NEUTROPHILS % (MAN) 76 % (42-78); TOTAL CELLS COUNTED 100
[2020-11-11 19:29] LABS: ANISOCYTOSIS 3+; HYPOCHROMASIA SLIGHT; POIKILOCYTOSIS 2+
[2020-11-11 19:30] LABS: PLATELET CLUMPS PRESENT; PLATELET COMMENT ADEQUATE
[2020-11-11 19:31] LABS: PLATELET COUNT 291 10^3/uL (150-450); SCHISTOCYTES 2+; SPHEROCYTES 1+
[2020-11-11 20:42] LABS: PHOSPHORUS 3.2 mg/dL (2.5-4.5)
--- NOTE | 2020-11-11 20:47 | ER Document Report ---
ED General - General Chief Complaint: Altered Mental Status Stated Complaint: FALL/AMS Notes: 85-year-old male history of dementia otherwise, prostate cancer abdomen status, CAD, anemia attributed to B12 deficiency recently treated presents with reported "mental decline". I spoke to medical biller Taisha at [facility] who says that the previous medical/surgery registered nurse had found that the patient seemed to be somewhat different in his level of mental ability, but she was not able to further elaborate. She did not report any fall which was recorded in the chief complaint. Patient himself d enies having any complaints, says he feels well, and denies having any symptoms. History limited by dementia. - Related Data Allergies/Adverse Reactions: No Known Allergies Allergy (Verified 09/02/20 12:05) Home Medications: ASA, docusate,ferrous sulfate, memantine,multivitamin Past Medical History - General Information source: Patient, Transfer Record, Emergency Med Personnel, [facility] Records, Outside Facility Records - Social History Smoking Status: Never Smoker Family History: Reviewed & Not Pertinent - Past Medical History Cardiac Medical History: Reports: Hx Coronary Artery Disease Malignancy Medical History: Reports Hx Prostate Cancer Psychiatric Medical History: Reports: Hx Dementia Review of Systems - Review of Systems Notes: REVIEW OF SYSTEMS: CONSTITUTIONAL : Denies fever, chills, or sweats. EENT: Denies recent cold/sinus symptoms, denies throat pain CARDIOVASCULAR: Denies chest pain, LIZZETH RESPIRATORY: Denies cough, denies shortness of breath. GASTROINTESTINAL: Denies abdominal pain, nausea/vomiting. GENITOURINARY: Denies difficulty urinating, painful urination. MUSCULOSKELETAL: Denies neck pain, back pain. SKIN: Denies rash or skin lesions. HEMATOLOGIC : Denies easy bruising or bleeding. LYMPHATIC: Denies swollen, enlarged glands. NEUROLOGICAL: Denies headache, denies change in gait. PSYCHIATRIC: Denies anxiety or stress or depression. Physical Exam - Vital signs Vitals: Temp Resp BP 98.0 F 19 118/83 11/11/20 18:30 11/11/20 18:30 11/11/20 18:30 - Notes Notes: PHYSICAL EXAMINATION: GENERAL: Well kempt comfortable appearing elderly man resting comfortably in stretcher in no distress HEAD: Atraumatic, normocephalic. EYES: Pupils equal round and appropriate constriction, sclera anicteric, conjunctiva are normal. ENT: nares patent, moist mucous membranes. NECK: Normal range of motion, supple without lymphadenopathy LUNGS: Breath sounds clear to auscultation bilaterally and equal. No wheezes rales or rhonchi. Normal respiratory rate and effort HEART: Regular rate and rhythm with murmur greatest over upper left sternal border ABDOMEN: Soft, nontender, no guarding, no masses, no CVAT EXTREMITIES: Patient favors left side and resists straightening of any of his extremities but does not have any tenderness or any signs of trauma on full head to toe exam, pelvis stable NEUROLOGICAL: Awake, alert, oriented to place and self, moves all extremities spontaneously PSYCH: Normal mood, flat affect. SKIN: Warm, Dry, normal turgor, healed mildly hyperpigmented macular rash on bilateral dorsal forearms, no discharge no erythema no crusting Course - Re-evaluation Re-evalutation: 11/11/20 20:47 Patient sent in by detention which currently has Covid outbreak for a change in mental status, no specific complaints noted by staff, possible fall but no evidence of this on exam. Patient very comfortable appearing, no specific findings on exam, no signs of trauma, normal vital signs. Rule out intracranial hemorrhage, occult sepsis secondary to COVID-19 versus pneumonia versus UTI, electrolyte abnormalities, symptomatic anemia, thyroid dysfunction, EKG. Will obtain rapid Covid test before sending patient back to facility. CT head, chest x-ray, urine, electrolytes, TSH, B12 and vitamin D levels after review of records of recent admission. Likely discharge for further outpatient follow-up with PCP at [facility]. 11/12/20 00:48 Patient urine consistent with acute cystitis, positive nitrites negative likely that patient's infection is secondary to E. coli infection, given patient's prostate history and age I performed a rectal exam chaperoned by RN GISSELL to assess for prostate. Prostate was completely nontender and nonboggy and given that there are no other signs of acute prostatitis and no signs of pyelonephritis I will treat patient for acute cystitis. Will give 1 dose of ceftriaxone in the ED and then discharged on Macrobid which is currently not prescribed for elderly because of incidence of renal insufficiency in elderly but currently literature shows can be given safely and has better E. coli coverage than Bactrim and beta lactams and avoids the neurotoxicity of fluoroquinolones. No indication to admit at this time as patient is tolerating p.o. well at home, no systemic symptoms, no leukocytosis, no fever, normal exam, and will have close care at the SNF that he resides in. Awaiting result for rapid Covid test before sending him back to SNF so that they can cohort appropriately. 11/12/20 01:33 Patient with repeatedly normal pulse ox and then difficulty reading and computer captured two low pulse ox readings, but this is likely erroneous as patient has been resting comfortably without any respiratory symptoms and normal respiratory exam, but pulse ox has been coming off of his finger repeatedly. Asked RN to get an accurate pulse ox reading before discharge. Patient had had negative Covid test and I called and spoke to see medical aid again and informed her of negative Covid test and also patient's UTI and the need for follow-up and that we will be sending him back which she will communicate to the rest of their team. - Vital Signs Vital signs: Temp Pulse Resp BP Pulse Ox 98 F 73 13 133/71 H 76 L 11/11/20 18:44 11/11/20 18:48 11/12/20 01:30 11/12/20 01:30 11/12/20 00:30 - Laboratory Results Result Diagrams: 11/11/20 18:35 11/11/20 18:35 Laboratory Results Interpreted: 11/11/20 11/11/20 11/11/20 18:35 18:35 18:35 Hgb 13.2 L MCH 26.0 L RDW 22.7 H Carbon Dioxide 31 H BUN 33 H Vitamin B12 > 1000.0 H Urine Protein Urine Blood Urine Nitrite Urine Urobilinogen Ur Leukocyte Esterase 11/11/20 22:01 Hgb MCH RDW Carbon Dioxide BUN Vitamin B12 Urine Protein 100 H Urine Blood MODERATE H Urine Nitrite POSITIVE H Urine Urobilinogen 2.0 H Ur Leukocyte Esterase LARGE H Critical Laboratory Results Reviewed: No Critical Results - Radiology Results Critical Radiology Results Reviewed: No Critical Results - EKG Interpretation by Me Additional EKG results interpreted by me: 11/11/20 20:50 Sinus rhythm, no significant ST elevations or depressions, no significant T wave abnormalities, isolated PVC Discharge - Discharge Clinical Impression: Acute cystitis Qualifiers: Hematuria presence: with hematuria Qualified Code(s): N30.01 - Acute cystitis with hematuria Condition: Stable Disposition: HOME, SELF-CARE Additional Instructions: Urinary Tract Infection Your evaluation indicates that you have a urinary tract infection. This is due to germs growing in the bladder. This is a common problem. This infection usually responds quickly to antibiotics. Your antibiotic should be taken exactly as prescribed. Drink plenty of fluids -- three to four quarts a day. Occasionally, a bladder anesthetic will be prescribed to help stop the feeling of urgency until the antibiotic has a chance to clear the infection. This may cause your urine to be dark orange. Certain urine infections require a culture. If the doctor obtained a culture, the results will be back in two days. You should call to see if a change in treatment is needed. A repeat urinalysis after you finish treatment is often recommended. The physician will let you know if further testing is required. Call the doctor if you develop fever, chills, flank pain, inability to urinate, or blood in the urine. Have patient follow-up with primary doctor within 3 days. If he has any worsening mental status, fever, vomiting, confusion, inability to keep down liquids by mouth, inability to urinate, or any other worsening or alarming symptoms return to the emergency department immediately. Prescriptions: Nitrofurantoin Monohyd/M-Cryst [Macrobid 100 mg Capsule] 100 mg PO BID 5 Days #10 cap
--- NOTE | 2020-11-11 21:40 | RADIOLOGY REPORT (SQ) ---
EXAM DESCRIPTION: CHEST SINGLE VIEW CLINICAL HISTORY: 85 years Male, fall ams COMPARISON: Single view of the chest September 02, 2020 FINDINGS: Lungs: Lungs are clear. No pneumonia or edema. No pneumothorax or pleural effusion. 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 There is mild widening of the mediastinum. Hiatal hernia is again identified. Bones: Osseous structures are unchanged IMPRESSION: No acute process. No significant interval change.
--- NOTE | 2020-11-11 21:42 | RADIOLOGY REPORT (SQ) ---
EXAM DESCRIPTION: PELVIS AP, single view of the pelvis and single view of the right hip. CLINICAL HISTORY: 85 years Male, fall COMPARISON: None. FINDINGS: The hips are located bilaterally. There is subtle axial joint space narrowing. The pelvic ring is intact. Sacrum and SI joints are intact. 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 Small ossific densities are seen superior and laterally to the hip joint suggesting degenerative osteophytes. No acute fracture. IMPRESSION: No acute fracture
--- NOTE | 2020-11-11 21:43 | RADIOLOGY REPORT (SQ) ---
EXAM DESCRIPTION: CT HEAD WITHOUT IV CONTRAST COMPLETED DATE/TME: 11/11/2020 20:56 CLINICAL HISTORY: 85 years, Male, AMS COMPARISON: September 02, 2020 and June 11, [address] TECHNIQUE: Noncontrast CT images of the brain were obtained. Images stored on PACS. All CT scanners at this facility use dose modulation, iterative reconstruction, and/or weight based dosing when appropriate to reduce radiation dose to as low as reasonably achievable (ALARA). [facility]: Dose Right [facility]: CareDose [facility]: Dose Right [facility]: Teradose 4D [facility]: [id number] LIMITATIONS: Motion artifact FINDINGS: There is no evidence of acute intracranial hemorrhage or abnormal mass effect. There is stable, generalized atrophy. 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 There is mild low attenuation within the white matter, stable and likely sequelae of chronic small vessel ischemic disease. Mild ventricular enlargement is commensurate with the degree of atrophy and is also stable. The calvarium is intact. The visualized portions of the paranasal sinuses and mastoid air cells are clear. IMPRESSION: Stable, chronic appearing findings as above. No acute abnormality is seen. TECHNICAL DOCUMENTATION: Quality ID # [id number]: Final reports with documentation of one or more dose reduction techniques (e.g., Automated exposure control, adjustment of the mA and/or kV according to patient size, use of iterative reconstruction technique) copyright 2011 [employer]- All Rights Reserved
--- NOTE | 2020-11-11 21:58 | EKG REPORT ---
SEVERITY:- ABNORMAL ECG - SINUS RHYTHM VENTRICULAR PREMATURE COMPLEX : Confirmed by: Patrick Mckeon MD 11-Nov-2020 21:57:39
[2020-11-11 22:33] LABS: APPEARANCE,URINE TURBID; BILIRUBIN,URINE NEGATIVE (NEGATIVE); COLOR,URINE YELLOW; GLUCOSE, URINE NEGATIVE (NEGATIVE); KETONES,URINE NEGATIVE (NEGATIVE); LEUKOCYTE ESTERASE,URINE LARGE (NEGATIVE); NITRITE,URINE POSITIVE (NEGATIVE); PROTEIN,URINE 100 mg/dL (NEGATIVE); URINE SPECIFIC GRAVITY 1.025
[2020-11-11 22:59] LABS: URINE AMPHETAMINES SCREEN NEGATIVE; URINE BARBITURATES SCREEN NEGATIVE; URINE BENZODIAZEPINES SCREEN NEGATIVE; URINE COCAINE SCREEN NEGATIVE; URINE MARIJUANA (THC) SCREEN NEGATIVE; URINE METHADONE SCREEN NEGATIVE; URINE PHENCYCLIDINE SCREEN NEGATIVE
[2020-11-12] MEDS ORDERED: CEFTRIAXONE INJ 1000 MG VIAL IV ONE (00:48)
[2020-11-12 01:55] VITALS: BP 133/71
[2020-11-12] MEDS ORDERED: CEFTRIAXONE 1 GM/D5W RTU 0 GM/0 ML RTUPB IV ONE (02:11)
[2020-11-12] MEDS ORDERED: CEFTRIAXONE INJ 1000 MG VIAL IM ONE (02:12)
[2020-11-12] MEDS ORDERED: CEFTRIAXONE 1 GM/D5W RTU 1 GM/50 ML RTUPB IV ONE (02:16)
[2020-11-12 08:23] LABS: RED CELL DISTRIBUTION WIDTH 22.7 % (11.5-14.0)
== END 2020-11-12 02:45 | disposition home or self-care (01) ==
LOC: ER 18:18
DX: N30.01 Acute cystitis with hematuria (principal); R41.82 Altered mental status, unspecified; F03.90 Unspecified dementia, unspecified severity, without behavioral disturbance, psychotic disturbance, mood disturbance, and anxiety; I25.10 Atherosclerotic heart disease of native coronary artery without angina pectoris; D64.9 Anemia, unspecified; Z20.822 Contact with and (suspected) exposure to COVID-19; Z85.46 Personal history of malignant neoplasm of prostate
CPT/HCPCS: 93005; 99285; 96365; 36415; 87086; 82962; 80307 ×2; 82607; 83735; 84100; 84443; 85025; 0202U; 87088; 80053; 81001; 87186; 82306; 71045; 72170; 70450; 93010; J0696